=== PATIENT | female | born 1960 | race Caucasian/White ===

== ENCOUNTER 2020-02-10 12:22 | Emergency (ER) | payer MEDICARE ==
[~2020-02-10] VITALS: Ht 154.9 cm; Wt 82.8 kg
[2020-02-10 13:12] LABS: BASOPHILS % (AUTO) 0 % (0-1); EOSINOPHILS % (AUTO) 0 % (1-7); LYMPHOCYTES % (AUTO) 13 % (22-44); MEAN CORPUSCULAR HEMOGLOBIN 28.5 pg (27.0-34.8); MEAN CORPUSCULAR HGB CONC 32.4 g/dL (32.4-35.8); MEAN PLATELET VOLUME 8.9 fL (7.4-10.4); MONOCYTES % (AUTO) 7 % (2-9); NEUTROPHILS % (AUTO) 80 % (42-75); PLATELET COUNT 215 x10^3/uL (130-400); RED BLOOD COUNT 4.32 x10^6/uL (3.82-5.3); RED CELL DISTRIBUTION WIDTH 13.9 % (9.6-15.2)
[2020-02-10 13:14] LABS: MD NO
[2020-02-10 13:47] LABS: ALBUMIN 3.1 g/dL (3.4-5.0); ANION GAP 9 mmol/L (5-15); CALCIUM 8.6 mg/dL (8.5-10.1); CHLORIDE 108 mmol/L (98-107); CREATININE 1.86 mg/dL (0.55-1.02)
--- NOTE | 2020-02-10 14:00 | NUR ---
REPORT FROM KENISHA ADAMS. PT RESTING CALMLY IN [facility]. UA COLLECTED AND SENT TO LAB
[2020-02-10] MEDS ORDERED: DIAZEPAM 5 MG TABLET ONE (14:09)
--- NOTE | 2020-02-10 14:13 | NUR ---
REPORT GIVEN TO SOPHY DE. PT AWAITING U/A RESULTS. PT MEDICATED FOR PAIN PER ORDERS. PT REMAINS ON MONITORS, CALL LIGHT IN REACH. NO DISTRESS.
[2020-02-10 14:21] LABS: MICROSCOPIC INDICATED
[2020-02-10] MEDS ORDERED: DIAZEPAM 5 MG TABLET PO ONE (14:30)
[2020-02-10] MEDS ORDERED: INSULIN REGULAR 100 UNITS/ML, 3ML VIAL SQ-INSULIN ONE (15:00)
[2020-02-10] MEDS ORDERED: INSULIN SINGLE DOSE, ER ONE (15:07)
[2020-02-10 15:14] VITALS: BP 156/64
--- NOTE | 2020-02-10 15:52 | NUR ---
LITTLE IMPROVEMENT IN BS. PT REPORTEDLY TAKES PO DM RX AND INSULIN QAM AT HOME. PT MADE AWARE OF S/S OF HYPERGLYCEMIA AND AGREES TO RETURN TO ED IN THE EVENT THAT THEY OCCUR. PT EDUCATED REGARDING BG MANAGEMENT AND DIETARY OPTIONS. DC EDUCATION PROVIDED, PT DEMONSTRATES UNDERSTANDING. PT AMBULATED STEADILY TO DC W RN AND FAMILY.
== END 2020-02-10 15:55 | disposition home or self-care (01) ==
LOC: ED 14:17
DX: S39.012A Strain of muscle, fascia and tendon of lower back, initial encounter (principal); M51.36 Other intervertebral disc degeneration, lumbar region; N30.00 Acute cystitis without hematuria; I10 Essential (primary) hypertension; E11.65 Type 2 diabetes mellitus with hyperglycemia; X58.XXXA Exposure to other specified factors, initial encounter; Y93.89 Activity, other specified; Y92.89 Other specified places as the place of occurrence of the external cause; Y99.8 Other external cause status
CPT/HCPCS: 36415; 72110; 80048; 81001; 82040; 82962; 85025; 99284; J1815

== ENCOUNTER 2020-02-11 15:27 | Emergency (ER) | payer MEDICARE ==
[~2020-02-11] VITALS: Ht 154.9 cm; Wt 82.8 kg
--- NOTE | 2020-02-11 18:56 | NUR ---
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
[2020-02-11] MEDS ORDERED: METHOCARBAMOL 750 MG TABLET ONE (19:27)
[2020-02-11] MEDS ORDERED: KETOROLAC 30 MG/1 ML ONE (19:28)
[2020-02-11] MEDS ORDERED: METHOCARBAMOL 750 MG TABLET PO ONE (19:30)
[2020-02-11] MEDS ORDERED: KETOROLAC 30 MG/1 ML IM ONE (19:30)
--- NOTE | 2020-02-11 19:41 | NUR ---
TASK RN NOTE: AWAITING PT'S RETURN FROM BATHROOM FOR BLOOD SUGAR MEASUREMENT.
[2020-02-11] MEDS ORDERED: INSULIN SINGLE DOSE, ER ONE ×2 (20:21→20:44)
[2020-02-11] MEDS ORDERED: INSULIN REGULAR 100 UNITS/ML, 3ML VIAL SQ-INSULIN ONE (20:30)
[2020-02-11 21:26] VITALS: BP 166/89
== END 2020-02-11 21:26 | disposition home or self-care (01) ==
LOC: ED 20:10
DX: M54.5 Low back pain (principal); M79.652 Pain in left thigh; M79.89 Other specified soft tissue disorders; I10 Essential (primary) hypertension; E11.9 Type 2 diabetes mellitus without complications
CPT/HCPCS: 73502; 82962; 93971; 96372; 99284; J1815; J1885; J7512